=== PATIENT | male | born 1975 | race Two or more races ===

== ENCOUNTER 2024-10-15 19:53 | Emergency (ER) | payer MEDICAID, SELFPAY ==
[2024-10-15 19:56] VITALS: BMI 28.1
[2024-10-15 20:40] VITALS: BP 146/89; PULSE 91; RESP 20; TEMP 36.9; O2SAT 96
--- NOTE | 2024-10-15 21:03 | PD.EDRME ---
Rapid Medical Screening Exam RME Arrival date/time: 10/15/24 19:53 49-year-old male presents emergency department complaining of generalized weakness after binge drinking for 1 week. Chief Complaint: Weakness Time Seen by Provider: 10/15/24 20:57 Vital signs: Vital Signs Temperature 98.4 F 10/15/24 20:40 Pulse Rate 91 10/15/24 20:40 Respiratory Rate 20 10/15/24 20:40 Blood Pressure 146/89 H 10/15/24 20:40 Pulse Oximetry (%) 96 10/15/24 20:40 Oxygen Delivery Method Room Air 10/15/24 20:40 Vital signs reviewed by provider: Yes
[2024-10-15] MEDS: ONDANSETRON ODT 4 MG TABRAP PO (21:30)
[2024-10-15 21:37] LABS: Basophils % (Auto) 0 % (0-2.5); Eosinophils % (Auto) 0 % (0-10); Hematocrit 39.2 % (41.0-53.0); Hemoglobin 14.6 g/dL (13.5-16.0); Immature Granulocytes % (Auto) 0 % (0-0); Immature Granulocytes Auto 0.03 Thou/mm3 (0.00-0.00); Lymphocytes # (Auto) 1.5 Thou/mm3 (1.0-4.8); Lymphocytes % (Auto) 22 % (10-50); Mean Corpuscular HGB Conc 37.2 g/dl (31.0-37.0); Mean Corpuscular Hemoglobin 31.5 pg (25.0-35.0); Mean Corpuscular Volume 85 fL (80-100); Monocytes # (Auto) 0.4 Thou/mm3 (0.0-0.8); Monocytes % (Auto) 6 % (0-12); Neutrophils % (Auto) 72 % (37-80); Nucleated Red Blood Cell % 0 /100 WBC (0); Platelet Count 186 Thou/mm3 (140-440); RDW Standard Deviation 36.1 fL (35.1-43.9); Red Blood Count 4.63 Miln/mm3 (4.50-5.90); White Blood Count 6.9 Thou/mm3 (3.8-10.6)
[2024-10-15 22:03] LABS: B-Type Natriuretic Peptide < 20 pg/mL (0-100)
[2024-10-15 22:05] LABS: Alanine Aminotransferase 21 U/L (10-49); Albumin, Serum 4.4 gm/dL (3.5-5.0); Albumin/Globulin Ratio 1.4 (1.2-2.2); Alcohol, Blood Medical 151.5 mg/dL (0-10.0); Alkaline Phosphatase 56 U/L (46-116); Anion Gap 11 (7-16); Aspartate Amino Transferase 25 U/L (0-34); BUN/Creatinine Ratio 11 Ratio (12-20); Bilirubin,Total 1.2 mg/dL (0.3-1.2); Blood Urea Nitrogen 9 mg/dL (9-23); Calcium 8.9 mg/dL (8.3-10.6); Calcium (Corrected) 8.9 mg/dL (8.5-10.1); Carbon Dioxide 28.3 mMol/L (20.0-31.0); Chloride 101 mMol/L (98-107); Creatinine (Component) 0.8 mg/dL (0.6-1.3); Estimated Creatinine Clearance 115.5 mL/min (>60); Globulin 3.2 gm/dL (2.3-3.5); Glucose 137 mg/dL (74-106); Osmolality,Calculated 280 (275-295); Potassium 3.2 mMol/L (3.4-5.1); Sodium 140 mMol/L (136-145); Total Protein 7.6 gm/dL (5.7-8.2); Troponin I < 0.002 ng/mL (0.0-0.045); eGFR > 60 See Note
[2024-10-15 23:28] LABS: Amphetamine/Methamp Scrn,U Negative (Negative); Barbiturate Screen,Urine Negative (Negative); Benzodiazepines Screen,Urine Negative (Negative); Benzoylecgonine Screen, Ur Negative (Negative); Fentanyl Screen,Urine Negative (Negative); Opiate Screen,Urine Positive (Negative); THC Screen,Urine Negative (Negative)
== END 2024-10-16 03:11 | disposition left against medical advice (07) ==
PROVIDERS: Emergency Provider Emergency Medicine; PCP Family Medicine
DX: R53.1 Weakness (principal); Z53.29 Procedure and treatment not carried out because of patient's decision for other reasons
CPT/HCPCS: 36415; 80053; 80307; 80320; 83880; 84484; 85025; 99281; Q0162; G0480

== ENCOUNTER 2025-01-19 06:38 | Emergency (ER) | payer MEDICAID, SELFPAY ==
[2025-01-19 07:00] VITALS: BMI 25.1
[2025-01-19 07:02] VITALS: BP 146/94; PULSE 91; RESP 18; TEMP 37.1; O2SAT 98
[2025-01-19 07:10] VITALS: PULSE 124; RESP 24; O2SAT 99; BMI 21.7
--- NOTE | 2025-01-19 07:27 | EKG_ITS ---
[facility] Test Date: 2025-01-19 Pat Name: AGUSTINA TATUM Department: Room: - Gender: Male Financial Coordinator: : 1975 Requested By: Sumanth Zapata Order Number: [id number] Reading MD: Sumanth Zapata Measurements Intervals [place] Rate: 90 P: 53 HI: 162 QRS: 18 QRSD: 121 T: 35 QT: 353 QTc: 433 Interpretive Statements SINUS RHYTHM MODERATE INTRAVENTRICULAR CONDUCTION DELAY [110+ ms QRS DURATION] NONSPECIFIC T-WAVE ABNORMALITY Compared to ECG 07/01/2021 23:40:32 Intraventricular conduction delay now present T-wave abnormality now present /store/S0/[id number]/[id number].pdf
--- NOTE | 2025-01-19 07:28 | EDNOTE_ITS ---
ED Weakness RME/HPI General Chief complaint: Anxiety Stated complaint: ABNORMAL VITAL SIGNS Time Seen by Provider: 01/19/25 07:22 Source: patient Arrival date/time: 01/19/25 06:38 49-year-old male with a history of hypertension, alcoholism presents to the emergency room with a chief complaint of generalized weakness, fatigue, lightheadedness x 3 days Mode of arrival: ambulatory Limitations: no limitations Related Data Home Medications ?Medication ?Instructions ?Recorded ?Confirmed lisinopril 10 mg tablet 10 mg PO QDAY 08/30/1812/05 Previous Rx's ?Medication ?Instructions ?Recorded lorazepam 1 mg tablet (Ativan) 1 mg PO BID PRN anxiety #14 tabs 07/16/20 alprazolam 0.5 mg tablet (Xanax) 0.5 mg PO BID PRN anx iety #20 tabs 12/05/20 potassium chloride 20 mEq 20 meq PO QDAY #5 tabs 12/05 tablet,extended release alprazolam 1 mg tablet (Xanax) 1 mg PO BID PRN anxiety /withdrawal 07/02/21 #15 tabs sucralfate 100 mg/mL oral 10 ml PO BID PRN esophagitis #200 07/02/21 suspension (Carafate) mL Allergies Allergy/AdvReac Type Severity Reaction Status Date / Time No Known Allergies Allergy Verified 01/19/25 07:15 Review of Systems Review of Systems Systems Reviewed: All systems reviewed, normal except as documented Constitutional Constitutional: Reports system reviewed and no additional complaints, except as documented, Denies fatigue, Denies fever(s), Denies headache(s) and Denies weakness Eyes Eyes: Reports system reviewed and no additional complaints, except as documented, Denies blurry vision and Denies change in vision ENT Ears, Nose, Mouth, and Throat: Reports system reviewed and no additional complaints, except as documented, Denies otalgia, Denies headache(s), Denies nasal congestion, Denies throat swelling and Denies vertigo Cardiovascular Cardiovascular: Reports system reviewed and no additional complaints, except as documented, Denies chest pain, Denies dyspnea and Denies dyspnea on exertion Respiratory Respiratory: Reports system reviewed and no additional complaints, except as documented, Denies chest congestion, Denies cough, Denies dyspnea, Denies dyspnea on exertion and Denies wheezing Gastrointestinal Gastrointestinal: Reports system reviewed and no additional complaints, except as documented, Denies abdominal pain, Denies cramping, Denies nausea and Denies vomiting Genitourinary Genitourinary: Reports system reviewed and no additional complaints, except as documented, Denies dysuria and Denies hematuria Musculoskeletal Musculoskeletal: Reports system reviewed and no additional complaints, except as documented and Denies back pain Integumentary/Breasts Skin/Breast: Reports system reviewed and no additional complaints, except as documented and Denies wounds Neurologic Neurologic: Reports system reviewed and no additional complaints, except as documented, Denies confusion, Denies headache(s), Denies lack of coordination, Denies vertigo and Denies weakness Psychiatric Psychiatric: Reports system reviewed and no additional complaints, except as documented, Denies anxiety, Denies confusion, Denies depression, Denies paranoia, Denies suicidal ideation and Denies tactile hallucinations Endocrine Endocrine: Reports system reviewed and no additional complaints, except as documented and Denies fatigue Hematologic/Lymphatic Hematologic/Lymphatic: Reports system reviewed and no additional complaints, except as documented and Denies lymphadenopathy Allergic/Immunologic Allergic/Immunologic: Reports system reviewed and no additional complaints, except as documented, Denies throat swelling, Denies urticaria and Denies wheezing ED Exam General Limitations: Present no limitations General appearance: Present alert and in no apparent distress Head Head exam: Present atraumatic Eye Eye exam: Present normal appearance, PERRL and EOMI ENT ENT exam: Present normal exam, normal oropharynx and mucous membranes moist Neck Neck exam: Present normal inspection, full ROM and trachea midline Chest Chest inspection: Present normal inspection and symmetric chest wall rise Respiratory Respiratory exam: Present normal lung sounds bilaterally; Absent respiratory dis tress, wheezes, stridor, accessory muscle use or prolonged expiratory phase Cardiovascular Cardiovascular exam: Present regular rate, normal rhythm and normal heart sounds Abdominal Exam Abdominal exam: Present soft and normal bowel sounds; Absent tenderness Extremities Exam Extremities exam: Present normal inspection and full ROM Back Exam Back exam: Present normal inspection and full ROM Neurological Exam Neurological exam: Present alert, oriented X3 and CN II-XII intact Psychiatric Psychiatric exam: Present normal affect and normal mood Skin Skin exam: Present warm, dry, intact and normal color Course Quality Measures none Orders Category Date Time Status EKG (ED ONLY) *Do not use* NOW Care 01/19/25 07:27 Completed EKG (ED Only) Stat Exams 01/19/25 07:27 Draft Alcohol, Blood Medical Stat Lab 01/19/25 07:42 Completed B-Type Natriuretic Peptide Stat Lab 01/19/25 07:42 Completed CBC Stat Lab 01/19/25 07:42 Completed Comprehensive Metabolic Panel Stat Lab 01/19/25 07:42 Completed Drug Screen,Urine Stat Lab 01/19/25 07:53 Completed Magnesium Stat Lab 01/19/25 07:42 Completed Troponin I Stat Lab 01/19/25 07:42 Completed Urinalysis Stat Lab 01/19/25 07:53 Completed Potassium Chloride [K-Dur] Med 01/19/25 10:22 Discontinued 40 meq PO X1 ONE Vital Signs Vital signs: Vital Signs Temperature 98.7 F 01/19/25 07:02 Pulse Rate 91 01/19/25 07:02 Respiratory Rate 18 01/19/25 07:02 Blood Pressure 146/94 H 01/19/25 07:02 Pulse Oximetry (%) 98 01/19/25 07:02 Oxygen Delivery Method Room Air 01/19/25 07:02 O2 saturation 98% within normal limits Weakness MDM Narrative MDM Narrative:: 49-year-old male with a history of hypertension, alcoholism presents to the emergency room with a chief complaint of generalized weakness, fatigue, lightheadedness x 3 days Patient is hemodynamically stable and in no apparent distress. He is not tachypneic not tachycardic and O2 saturation is within normal limits Physical examination shows clear bilateral lung sounds. Heart sounds are strong and regular S1 and S2 noted. EKG shows normal sinus rhythm at [address] deviation CBC CMP are within normal limits. Potassium was at 3 oral potassium was given patient was given education to eat potassium rich foods. Troponin was negative. Patient tested positive for methamphetamine as well as alcohol. Patient was given education to please stop using methamphetamine and drinking alcohol as this is the most probable cause of your symptoms Patient was discharged and educated to follow-up with primary care provider in the next 24 to 48 hours and return to the emergency room for any evidence of worsening signs or symptoms Patient data External records reviewed:: [facility] previous records Clinical information provided by:: patient Social determinants that could affect healthcare access:: none Patient has the following chronic illnesses:: No chronic illness How is presenting disease/condition affected by chronic disease/condition?: no chronic disease Evaluation data The following diagnostics were reviewed and interpreted by me:: lab results and radiology exam(s) Lab and/or radiology exams considered but not ordered:: Labs and radiology exams considered and ordered Interpretation Summary: N/A Medications / Prescriptions Medications or Prescriptions considered but not ordered:: Medication given Medication administrations:: Medication Administration History Discontinued Medications Potassium Chloride (Potassium Chloride 20 Meq Tabcr) 40 meq PO X1 ONE Stop: 01/19/25 10:23 Last Admin: 01/19/25 10:54 Dose: 40 meq Documented By: DO Medication given Consultations Consultation(s) initiated? (list below): No Diagnosis Weakness Differential Diagnosis: acute myocardial infarction, anemia, dehydration and other (Methamphetamine abuse) Most likely diagnosis given after review of the tests above:: Methamphetamine abuse Admission Indicated Admission indicated?: not indicated Admission Request Was there a request for admission?: No Disposition Plan Disposition Plan: Discharge Discharge Attestation Discharge Attestation: The patient and all family members were given an opportunity to ask questions and understood the discharge instructions. Discharge instructions specifically effects, indications for sooner follow up or return to the emergency department, and the expected course of current diagnosis. Patient condition: Stable Discharge Plan Plan Patient Disposition: HOME (Self Care) Discharge Disposition comment: Stable Prescriptions/Referrals Prescriptions/Med Rec: No Action lorazepam [Ativan] 1 mg tablet 1 mg PO BID PRN (Reason: anxiety) Qty: 14 0RF alprazolam [Xanax] 0.5 mg tablet 0.5 mg PO BID PRN (Reason: anxiety) Qty: 20 0RF potassium chloride 20 mEq tablet extended release 20 meq PO QDAY Qty: 5 0RF alprazolam [Xanax] 1 mg tablet 1 mg PO BID PRN (Reason: anxiety/withdrawal ) Qty: 15 0RF sucralfate [Carafate] 100 mg/mL suspension 10 ml PO BID PRN (Reason: esophagitis ) Qty: 200 0RF lisinopril 10 mg Tablet 10 mg PO QDAY Referrals: Andre Tai MD [Primary Care Provider] - In 1 week Problem List Clinical Impression: Methamphetamine abuse, Alcohol abuse, Hypokalemia Patient/Caregiver Discharge Instructions Education Materials: ED Drug Abuse, ED Hypokalemia, ED Alcohol Abuse Additional Instructions: Please follow-up with your primary care provider in the next 24 to 48 hours. Your potassium levels were low please increase your oral potassium intake. Bananas, potatoes, oranges, spinach are some of the potassium rich foods. Oral potassium was given to you in the emergency room. Please stop using methamphetamine and alcohol as these are leading to your symptoms. For any evidence of worsening signs or symptoms return to the emergency room immediately Print Language: Israeli Stand Alone Forms: [employer] Award Info., Work/School Release, Patient Portal Info Letter PA/BUSINESS MANAGEMENT SPECIALIST Supervising Physician PA/BUSINESS MANAGEMENT SPECIALIST Supervising Physician: Dr. Kelly
[2025-01-19 07:56] LABS: Collection Type, Urine Clean Catch; Squamous Epithelial Cell,Urine 0 /hpf (0-5)
[2025-01-19 08:20] LABS: Basophils # (Auto) 0.1 Thou/mm3 (0.0-0.2); Basophils % (Auto) 1 % (0-2.5); Eosinophils % (Auto) 0 % (0-10); Hematocrit 38.9 % (41.0-53.0); Hemoglobin 14.1 g/dL (13.5-16.0); Immature Granulocytes % (Auto) 0 % (0-0); Immature Granulocytes Auto 0.02 Thou/mm3 (0.00-0.00); Lymphocytes # (Auto) 1.9 Thou/mm3 (1.0-4.8); Lymphocytes % (Auto) 22 % (10-50); Mean Corpuscular HGB Conc 36.2 g/dl (31.0-37.0); Mean Corpuscular Hemoglobin 31.1 pg (25.0-35.0); Mean Corpuscular Volume 86 fL (80-100); Monocytes # (Auto) 0.5 Thou/mm3 (0.0-0.8); Monocytes % (Auto) 6 % (0-12); Neutrophils % (Auto) 71 % (37-80); Nucleated Red Blood Cell % 0 /100 WBC (0); Platelet Count 317 Thou/mm3 (140-440); RDW Standard Deviation 36.6 fL (35.1-43.9); Red Blood Count 4.54 Miln/mm3 (4.50-5.90); White Blood Count 8.5 Thou/mm3 (3.8-10.6)
[2025-01-19 08:24] LABS: Bilirubin,Urine Negative (Negative); Blood,Urine Negative (Negative); Clarity,Urine Clear (Clear/Hazy); Color,Urine Lt-Yellow (Lt Yel-Yel); Glucose, Urine Negative (Negative); Ketones,Urine Negative (Negative); Leukocyte Esterase,Urine Negative (Negative); Nitrite,Urine Negative (Negative); Protein,Urine Trace (Neg - Trace); RBC,Urine 1 /hpf (0-3); Specific Gravity,Urine 1.022 (1.001-1.035); Urobilinogen,Urine Negative mg/dL (0.0-1.0); WBC,Urine 1 /hpf (0-5)
[2025-01-19 08:35] LABS: Amphetamine/Methamp Scrn,U Positive (Negative); Barbiturate Screen,Urine Negative (Negative); Benzodiazepines Screen,Urine Negative (Negative); Benzoylecgonine Screen, Ur Negative (Negative); Fentanyl Screen,Urine Negative (Negative); Opiate Screen,Urine Negative (Negative); THC Screen,Urine Negative (Negative)
[2025-01-19 08:36] LABS: B-Type Natriuretic Peptide < 20 pg/mL (0-100)
[2025-01-19 08:38] LABS: Alanine Aminotransferase 23 U/L (10-49); Albumin, Serum 4.7 gm/dL (3.5-5.0); Albumin/Globulin Ratio 1.4 (1.2-2.2); Alcohol, Blood Medical 153.1 mg/dL (0-10.0); Alkaline Phosphatase 71 U/L (46-116); Anion Gap 10 (7-16); Aspartate Amino Transferase 29 U/L (0-34); BUN/Creatinine Ratio 10 Ratio (12-20); Bilirubin,Total 1.5 mg/dL (0.3-1.2); Blood Urea Nitrogen 10 mg/dL (9-23); Calcium 8.7 mg/dL (8.3-10.6); Calcium (Corrected) 8.7 mg/dL (8.5-10.1); Carbon Dioxide 24.8 mMol/L (20.0-31.0); Chloride 102 mMol/L (98-107); Estimated Creatinine Clearance 99.2 mL/min (>60); Globulin 3.3 gm/dL (2.3-3.5); Glucose 112 mg/dL (74-106); Magnesium 1.8 mg/dL (1.6-2.6); Osmolality,Calculated 273 (275-295); Sodium 137 mMol/L (136-145); Troponin I < 0.002 ng/mL (0.0-0.045); eGFR > 60 See Note
[2025-01-19] MEDS: POTASSIUM CHLORIDE 20 mEq TABCR 40 MEQ PO (10:54)
[2025-01-19 11:03] VITALS: BP 163/99; PULSE 83; RESP 18; TEMP 36.7; O2SAT 97
== END 2025-01-19 11:06 | disposition home or self-care (01) ==
PROVIDERS: Nurse Practitioner Family; Emergency Provider Podiatrist Foot & Ankle Surgery; PCP Family Medicine
DX: F15.10 Other stimulant abuse, uncomplicated (principal); F10.10 Alcohol abuse, uncomplicated; E87.6 Hypokalemia; I10 Essential (primary) hypertension
CPT/HCPCS: 36415; 80053; 80307; 80320; 81001; 83735; 83880; 84484; 85025; 93005; 99283; A9270; G0480

== ENCOUNTER 2025-08-13 11:05 | Emergency (ER) | payer MEDICAID, SELFPAY ==
[2025-08-13 11:05] VITALS: BMI 28.1
[2025-08-13 11:21] VITALS: BP 144/91; PULSE 83; RESP 18; TEMP 36.7; O2SAT 97
--- NOTE | 2025-08-13 11:31 | XR_ITS ---
Examination: Knee, right, 3 views Technique: Knee AP, lateral, oblique 3 views Date and time of exam: August 13, 2025, 1315 hours INDICATIONS: Patient fell 3 days ago with injury to the knee, knee pain. FINDINGS: No fracture or dislocation. No foreign body IMPRESSION: No fracture or dislocation
--- NOTE | 2025-08-13 11:31 | XR_ITS ---
Examination: Hand, right 3 views Technique: Hand AP, oblique, lateral 3 views Date and time of exam: August 13, 2025, 1314 INDICATIONS: Patient fell 2 days ago with injury of the hand, hand pain. FINDINGS: No acute fracture Soft tissue swelling dorsum of the hand No foreign body No dislocation IMPRESSION: Soft tissue swelling dorsum of the hand No acute fracture
--- NOTE | 2025-08-13 11:32 | EDRME_ITS ---
Rapid Medical Screening Exam [facility] Arrival date/time: 08/13/25 11:05 50-year-old male with no known medical history presents to the emergency room with a chief complaint of swelling and tenderness to his right hand and right knee after a ground-level fall that occurred 2 days ago I have greeted and performed a focused initial assessment of this patient. A comprehensive ED assessment and evaluation of the patient, analysis of all test results, and completion of the medical decision making process will be conducted by additional ED providers. Chief Complaint: Fall Time Seen by Provider: 08/13/25 11:29 Vital signs: Vital Signs Temperature 98.1 F 08/13/25 11:21 Pulse Rate 83 08/13/25 11:21 Respiratory Rate 18 08/13/25 11:21 Blood Pressure 144/91 H 08/13/25 11:21 Pulse Oximetry (%) 97 08/13/25 11:21 Oxygen Delivery Method Room Air 08/13/25 11:21 Vital signs reviewed by provider: Yes Exam: The right hand has significant swelling and tenderness. The patient has limited range of motion and is unable to make a close fist The patient's right knee has tenderness and swelling but the patient is able to ambulate Clinical Impression: Boxer fracture/knee sprain
[2025-08-13] MEDS: KETOROLAC INJ 60 MG/2 ML VIAL 30 MG IM ×2 (11:44→16:57)
--- NOTE | 2025-08-13 16:12 | EDNOTE_ITS ---
<Statement entered by Zhanna Nielson MD - 08/13/25 17:06> As co-signing physician, I was present and available for consult prn. I concur with the plan and care as documented by the midlevel provider. ED Fall Injury RME/HPI General Chief Complaint: Fall Stated Complaint: fall Time Seen by Provider: 08/13/25 11:29 Arrival date/time: 08/13/25 11:05 50-year-old male reports with complaints of right hand and right knee pain after falling down today. Patient is concerned for possible right hand fracture as he noticed severe swelling. He denies any numbness or tingling but does state that he has decreased ability to fully move the hand secondary to the swelling. He has not taken any medications for the pain RME / HPI RME / HPI Narrative: 08/13/25 11:05 50-year-old male with no known medical history presents to the emergency room with a chief complaint of swelling and tenderness to his right hand and right knee after a ground-level fall that occurred 2 days ago I have greeted and performed a focused initial assessment of this patient. A comprehensive ED assessment and evaluation of the patient, analysis of all test results, and completion of the medical decision making process will be conducted by additional ED providers. Exam: The right hand has significant swelling and tenderness. The patient has limited range of motion and is unable to make a close fist The patient's right knee has tenderness and swelling but the patient is able to ambulate Impression: Boxer fracture/knee sprain Related Data Home Medications ?Medication ?Instructions ?Recorded ?Confirmed lisinopril 10 mg tablet 10 mg PO QDAY 08/30/1812/05 Previous Rx's ?Medication ?Instructions ?Recorded lorazepam 1 mg tablet (Ativan) 1 mg PO BID PRN anxiety #14 tabs 07/16/20 alprazolam 0.5 mg tablet (Xanax) 0.5 mg PO BID PRN anx iety #20 tabs 12/05/20 potassium chloride 20 mEq 20 meq PO QDAY #5 tabs 12/05 tablet,extended release alprazolam 1 mg tablet (Xanax) 1 mg PO BID PRN anxiety /withdrawal 07/02/21 #15 tabs sucralfate 100 mg/mL oral 10 ml PO BID PRN esophagitis #200 07/02/21 suspension (Carafate) mL meloxicam 7.5 mg tablet 7.5 mg PO QDAY PRN pain #30 tabs 08/13/25 Allergies Allergy/AdvReac Type Severity Reaction Status Date / Time No Known Allergies Allergy Verified 08/13/25 11:07 Review of Systems Constitutional Constitutional: Denies chills and Denies fever(s) Musculoskeletal Musculoskeletal: Reports arthralgias, Denies deformity, Reports joint swelling, Denies numbness and Denies tingling Integumentary/Breasts Skin/Breast: Denies unusual bruising and Denies wounds Neurologic Neurologic: Denies numbness and Denies tingling Hematologic/Lymphatic Hematologic/Lymphatic: Denies easy bleeding and Denies easy bruising Past Medical History Past Medical History NEUROLOGIC: Negative Neurological Disorders CARDIAC: Positive Cardiac Disorders and Hypertension; Negative Congestive Heart Failure RESPIRATORY: Negative Chronic Obstructive Pulmonary Disease (COPD) or Asthma GASTROINTESTINAL: Positive Gastrointestinal Disorders and Pancreatitis GENITOURINARY: Negative Genitourinary Disorders or Renal Disease MUSCULOSKELETAL: Negative Musculoskeletal Disorders ENDOCRINE: Negative Endocrine Disorders, Diabetes Mellitus Type 1 or Diabetes Mellitus Type 2 HEMATOLOGIC: Negative Blood Disorders or Sickle Cell Disease PSYCHO/SOCIAL: Positive Anxiety Surgical History SURGICAL: Positive Joint Replacement; Negative Cardiac Surgery, Endocrine Surgery, Ear Surgery or Abdominal Surgery Social History SMOKING STATUS: Current every day smoker SUBSTANCE USE: does not use Course Quality Measures none Orders Category Date Time Status XR hand comp RT min 3V Stat Exams 08/13/25 11:31 Completed XR knee RT 3V Stat Exams 08/13/25 11:31 Completed Ketorolac Inj [Toradol Inj] Med 08/13/25 11:31 Discontinued 30 mg IM X1 ONE Ketorolac Inj [Toradol Inj] Med 08/13/25 16:41 Once 60 mg IM X1 ONE traMADol HCL [Ultram] Med 08/13/25 16:41 Once 50 mg PO X1 ONE Vital Signs Vital signs: Vital Signs Temperature 98.1 F 08/13/25 11:21 Pulse Rate 83 08/13/25 11:21 Respiratory Rate 18 08/13/25 11:21 Blood Pressure 144/91 H 08/13/25 11:21 Pulse Oximetry (%) 97 08/13/25 11:21 Oxygen Delivery Method Room Air 08/13/25 11:21 Fall Patient data External records reviewed:: None Clinical information provided by:: patient Social determinants that could affect healthcare access:: none Patient has the following chronic illnesses:: none How is presenting disease/condition affected by chronic disease/condition?: no chronic disease Evaluation data The following diagnostics were reviewed and interpreted by me:: radiology exam(s) Lab and/or radiology exams considered but not ordered:: none Interpretation Summary: X-ray of the right hand is negative for fractures or dislocations, x-ray right knee also negative for fractures or dislocations Medications / Prescriptions Medications or Prescriptions considered but not ordered:: None Medication administrations:: Medication Administration History Ketorolac Tromethamine (Ketorolac Inj 60 Mg/2 Ml Vial) 60 mg IM X1 ONE Stop: 08/13/25 16:42 Tramadol HCl (Tramadol Hcl 50 Mg Tablet) 50 mg PO X1 ONE Stop: 08/13/25 16:42 Discontinued Medications Ketorolac Tromethamine (Ketorolac Inj 60 Mg/2 Ml Vial) 30 mg IM X1 ONE Stop: 08/13/25 11:32 Last Admin: 08/13/25 11:44 Dose: 30 mg Documented By: OA As above Consultations Consultation(s) initiated? (list below): No Diagnosis Fall Differential Diagnosis: fracture of wrist, compression fracture and other (Knee fracture) Most likely diagnosis given after review of the tests above:: Right hand sprain, right knee contusion Admission Indicated Admission indicated?: not indicated Admission Request Was there a request for admission?: No Disposition Plan Disposition Plan: Discharge Discharge Attestation Discharge Attestation: The patient and all family members were given an opportunity to ask questions and understood the discharge instructions. Discharge instructions specifically effects, indications for sooner follow up or return to the emergency department, and the expected course of current diagnosis. Patient condition: Stable Discharge Plan Plan Patient Disposition: HOME (Self Care) Prescriptions/Referrals Prescriptions/Med Rec: New meloxicam 7.5 mg tablet 7.5 mg PO QDAY PRN (Reason: pain ) Qty: 30 0RF No Action lorazepam [Ativan] 1 mg tablet 1 mg PO BID PRN (Reason: anxiety) Qty: 14 0RF alprazolam [Xanax] 0.5 mg tablet 0.5 mg PO BID PRN (Reason: anxiety) Qty: 20 0RF potassium chloride 20 mEq tablet extended release 20 meq PO QDAY Qty: 5 0RF alprazolam [Xanax] 1 mg tablet 1 mg PO BID PRN (Reason: anxiety/withdrawal ) Qty: 15 0RF sucralfate [Carafate] 100 mg/mL suspension 10 ml PO BID PRN (Reason: esophagitis ) Qty: 200 0RF lisinopril 10 mg Tablet 10 mg PO QDAY Referrals: Andre Tai MD [Primary Care Provider, Family Practice] - In 1 week Problem List Clinical Impression: Sprain and strain of right hand, Contusion of knee, right Patient/Caregiver Discharge Instructions Discharge Activity: activity as tolerated Education Materials: Bruises (Contusions), ED Hand Sprain Additional Instructions: Apply ice with a towel to your hand for 20 minutes 2 or 3 times a day to help with the swelling, take medication as needed for pain and follow-up with your primary care provider if no improvement in 3 days Print Language: Russian Stand Alone Forms: [employer] Award Info., Patient Portal Info Letter
== END 2025-08-13 19:23 | disposition home or self-care (01) ==
PROVIDERS: Emergency Provider Emergency Medicine; PCP Family Medicine
DX: S63.91XA Sprain of unspecified part of right wrist and hand, initial encounter (principal); S66.911A Strain of unspecified muscle, fascia and tendon at wrist and hand level, right hand, initial encounter; S80.01XA Contusion of right knee, initial encounter; W19.XXXA Unspecified fall, initial encounter
CPT/HCPCS: 73130; 73562; 96372; 99283; J1885; A9270